=== PATIENT | female | born 1995 | race Caucasian/White ===

== ENCOUNTER 2020-03-01 11:33 | Outpatient (CLI) | payer MEDICAID ==
[2020-03-01] MEDS ORDERED: HYDROXYZINE PAMOATE 50 MG CAPSULE PO PRN (11:49)
[2020-03-01] MEDS ORDERED: HYDROXYZINE PAMOATE 50 MG CAPSULE ONE (12:05)
[2020-03-01 12:21] LABS: T.VAGINALIS (WET MOUNT) NO TRICHOMONAS SEEN; WBCS (WET MOUNT) NO WBCS SEEN; YEAST (WET MOUNT) NO YEAST SEEN
[2020-03-01 12:22] LABS: RBCS (WET MOUNT) NO RBCS SEEN
[2020-03-01 12:37] LABS: APPEARANCE,URINE CLEAR; BILIRUBIN,URINE NEGATIVE (NEGATIVE); COLOR,URINE YELLOW; GLUCOSE, URINE >=500 mg/dL (NEGATIVE); KETONES,URINE NEGATIVE (NEGATIVE); LEUKOCYTE ESTERASE,URINE NEGATIVE (NEGATIVE); NITRITE,URINE NEGATIVE (NEGATIVE); PROTEIN,URINE NEGATIVE (NEGATIVE); URINE SPECIFIC GRAVITY 1.018; UROBILINOGEN,URINE NEGATIVE mg/dL (<2.0)
[2020-03-01 12:53] LABS: URINE BARBITURATES SCREEN NEGATIVE; URINE BENZODIAZEPINES SCREEN NEGATIVE; URINE COCAINE SCREEN NEGATIVE; URINE MARIJUANA (THC) SCREEN NEGATIVE; URINE METHADONE SCREEN NEGATIVE; URINE PHENCYCLIDINE SCREEN NEGATIVE
[2020-03-01 13:41] LABS: CHLAM PCR DETECTED (NOT DETECT)
[2020-03-01] MEDS ORDERED: AZITHROMYCIN 1 GM SUSP PACKET PO ONE (14:03)
[2020-03-01] MEDS ORDERED: AZITHROMYCIN 1 GM SUSP PACKET ONE (14:09)
== END 2020-03-01 14:19 | disposition home or self-care (01) ==
LOC: LC 11:33
PROVIDERS: ATTEND Obstetrics & Gynecology
DX: O98.312 Other infections with a predominantly sexual mode of transmission complicating pregnancy, second trimester (principal); A56.02 Chlamydial vulvovaginitis; Z3A.23 23 weeks gestation of pregnancy
CPT/HCPCS: 36415; 87210; 82962; 81001; 80307 ×2; 87491; 87591; 59899; G0480; J3490; Q0144

== ENCOUNTER 2020-06-13 21:15 | Outpatient (CLI) | payer MEDICAID ==
[2020-06-13 21:35] LABS: APPEARANCE,URINE SLIGHTLY-CLOUDY; BILIRUBIN,URINE NEGATIVE (NEGATIVE); COLOR,URINE YELLOW; GLUCOSE, URINE >=500 mg/dL (NEGATIVE); KETONES,URINE NEGATIVE (NEGATIVE); LEUKOCYTE ESTERASE,URINE MODERATE (NEGATIVE); NITRITE,URINE NEGATIVE (NEGATIVE); PROTEIN,URINE 30 mg/dL (NEGATIVE); URINE SPECIFIC GRAVITY 1.023; UROBILINOGEN,URINE NEGATIVE mg/dL (<2.0)
[2020-06-13 21:51] LABS: URINE BARBITURATES SCREEN NEGATIVE; URINE BENZODIAZEPINES SCREEN NEGATIVE; URINE COCAINE SCREEN NEGATIVE; URINE MARIJUANA (THC) SCREEN NEGATIVE; URINE METHADONE SCREEN NEGATIVE; URINE PHENCYCLIDINE SCREEN NEGATIVE
[2020-06-13 21:57] LABS: URINE AMPHETAMINES SCREEN UNCONFIRMED POSITIVE
[2020-06-13 22:13] LABS: BACTERIA (WET MOUNT) 3+ BACTERIA SEEN; EPITHELIALS (WET MOUNT) 3+ EPITHELIALS SEEN; T.VAGINALIS (WET MOUNT) NO TRICHOMONAS SEEN; WBCS (WET MOUNT) 1+ WBCS SEEN; YEAST (WET MOUNT) NO YEAST SEEN
[2020-06-13 23:44] LABS: CHLAM PCR NOT DETECTED (NOT DETECT)
== END 2020-06-13 22:37 | disposition home or self-care (01) ==
LOC: LC 21:15
PROVIDERS: ATTEND Obstetrics & Gynecology
DX: O47.1 False labor at or after 37 completed weeks of gestation (principal); Z3A.38 38 weeks gestation of pregnancy
CPT/HCPCS: 80307; 81005; 84112; 87210; 87491; 87591